=== PATIENT | female | born 1990 | race Caucasian/White ===

== ENCOUNTER 2018-07-27 10:31 | Outpatient (CLI) | payer OTHER ==
--- NOTE | 2018-07-27 13:24 | ULT ---
PELVIC SONOGRAM TRANSABDOMINAL IMAGING WITH DUPLEX EVALUATION: HISTORY: Pelvic pain. FINDINGS: The urinary bladder is unremarkable. The uterus is retroverted with a heterogeneous echotexture and measures 8.3 cm. The endometrium is 1.2 cm. No free fluid. The right ovary is surgically absent. The left ovary is 3.6 cm. Small follicles. Good color and sp ectral Doppler flow. IMPRESSION: 1. Status post right oophorectomy. 2. Normal sonographic appearance of the left ovary. 3. Thickened endometrium of 1.2 cm. POS: [facility]
== END 2018-07-27 10:32 | disposition home or self-care (01) ==
LOC: SCSULT 10:31
PROVIDERS: ATTEND Family Medicine
DX: R10.2 Pelvic and perineal pain (principal); R93.89 Abnormal findings on diagnostic imaging of other specified body structures; Z90.721 Acquired absence of ovaries, unilateral
CPT/HCPCS: 76856

== ENCOUNTER 2018-08-02 10:29 | Outpatient (CLI) | payer OTHER ==
--- NOTE | 2018-08-02 12:11 | CT ---
CT PELVIS WITH CONTRAST: Date: 08/02/18 HISTORY: Pelvic pain. COMPARISON: Ultrasound dated 07/27/18. FINDINGS: There is a hemorrhagic corpus luteal cyst left ovary. Small volume free fluid in the pelvis, likely p hysiologic. Numerous phleboliths in the pelvis. There is a small lymph node adjacent to the sigmoid colon. No dilated loops of bowel in the lower pelvis. Skeleton is unremarkable. IMPRESSION: Left ovarian hemorrhagic cyst with small volume free fluid in the pelvis, likely physiologic. POS: [facility]
== END 2018-08-02 10:30 | disposition home or self-care (01) ==
LOC: SCSCT 10:29
PROVIDERS: ATTEND Family Medicine
DX: R10.2 Pelvic and perineal pain (principal); R19.00 Intra-abdominal and pelvic swelling, mass and lump, unspecified site; N83.202 Unspecified ovarian cyst, left side
CPT/HCPCS: 72193

== ENCOUNTER 2018-08-09 10:30 | Emergency (ER) | payer OTHER ==
[2018-08-09] MEDS ORDERED: Acetaminophen 500 MG TAB ONE (11:03)
[2018-08-09 11:16] LABS: #Basophils 0.1 thou/uL (0.0-0.2); #Eosinphils 0.4 thou/uL (0.0-0.7); #Lymphocytes 2.4 thou/uL (1.20-3.40); #Monocytes 0.5 thou/uL (0.11-0.59); %Basophils 1.4 % (0.0-1.0); %Eosinophils 4.7 % (0.0-10.0); %Lymphocytes 28.8 % (21.0-51.0); %Monocytes 5.5 % (0.0-10.0); %Neutrophils 59.6 % (42.0-75.0); Hemoglobin 14.3 g/dL (12.0-16.0); Mean Corpuscular HGB CONC 32.3 g/dL (32.0-36.0); Mean Corpuscular Hemoglobin 28.8 pg (27.0-31.0); Mean Corpuscular Volume 89.1 fL (78.0-98.0); Mean Platelet Volume 9.9 fL (7.4-10.4); Platelet Count 175 thou/uL (130-400); RBC Distribution Width 12.9 % (11.5-14.5); Red Blood Cell (RBC) Count 4.98 mill/uL (4.20-5.40); White Blood Cell (WBC) Count 8.4 thou/uL (4.8-10.8)
[2018-08-09 11:25] LABS: ALT (SGPT) 17 U/L (8-55); AST (SGOT) 15 U/L (5-34); Albumin 4.1 g/dL (3.5-5.0); Alkaline Phosphatase 38 U/L (40-150); Anion Gap 12 mmol/L (10-20); BUN (Urea Nitrogen) 7 mg/dL (7.0-18.7); Bilirubin, Total 0.4 mg/dL (0.2-1.2); Calc. Creatinine Clearance 0 mL/min (70-130); Calcium 9.5 mg/dL (7.8-10.44); Carbon Dioxide 24 mmol/L (22-29); Chloride 108 mmol/L (98-107); Estimated GFR-MDRD 85; Globulin 2.3 g/dL (2.4-3.5); Glucose 105 mg/dL (70-105); Lipase 17 U/L (8-78); Potassium 3.4 mmol/L (3.5-5.1); Protein, Total 6.4 g/dL (6.0-8.3); Sodium 141 mmol/L (136-145)
[2018-08-09 11:34] LABS: Bilirubin Negative (Negative); Blood, Urine Negative (Negative); Clarity Clear (Clear); Glucose, Urine (Dipstick) Negative (Negative); Leukocyte Negative (Negative); Nitrite Negative (Negative); Protein, Urine (Dipstick) Negative (Neg-Trace); Urobilinogen 0.2 mg/dL (0.2-1.0)
[2018-08-09 11:36] LABS: Pregnancy Test - Urine (BHCG) Negative (Negative); Pregu Control Background? CLEAR/WHITE (CLR/WHITE); Pregu Control Bar Appear? YES (CONTROL BAR)
--- NOTE | 2018-08-09 12:24 | ULT ---
TRANSVAGINAL PELVIS ULTRASOUND: HISTORY: Pelvic pain. COMPARISON: CT from 08/02/2018. TECHNIQUE: Real-time, hilario-scale, color Doppler, and spectral analysis of the pelvis is performed with a transab dominal and transvaginal approach. FINDINGS: The uterus measures 7.5 x 5.3 x 4.3 cm. Endometrial thickness is 6 mm. Prior right oophorectomy. The left ovary measures 3.8 x 2.9 x 2.7 cm with adequate vascular flow. N o significant free fluid. The uterus is retroverted. IMPRESSION: Normal examination. POS: [facility]
== END 2018-08-09 11:44 | disposition home or self-care (01) ==
LOC: SCSER 10:30
DX: N93.9 Abnormal uterine and vaginal bleeding, unspecified (principal); F17.210 Nicotine dependence, cigarettes, uncomplicated
CPT/HCPCS: 36415; 76856; 80053; 81003; 81025; 83690; 85025

== ENCOUNTER 2020-11-29 17:13 | Outpatient (CLI) | payer OTHER ==
[2020-11-29 19:17] LABS: BHCG - Serum Negative (NEGATIVE); Pregs Control Background? CLEAR/WHITE (CLR/WHITE); Pregs Control Bar Appear? YES (CONTROL BAR)
[2020-11-30 12:53] LABS: SARS-CoV-2 PCR by NAA Not Detected (NotDetected)
== END 2020-11-29 17:14 | disposition home or self-care (01) ==
LOC: LABBT 17:13
PROVIDERS: ATTEND Otolaryngology Plastic Surgery within the Head & Neck
DX: Z01.818 Encounter for other preprocedural examination (principal); J35.01 Chronic tonsillitis; Z20.822 Contact with and (suspected) exposure to COVID-19
CPT/HCPCS: 84703; 85014; U0003; U0005

== ENCOUNTER 2020-12-04 06:04 | Day surgery (SDC) | payer OTHER ==
[2020-12-03 11:54] VITALS: BMI 24.0
[2020-12-04] MEDS ORDERED: Fentanyl 100 MCG/2 ML VIAL ONE ×4 (06:23→08:56)
[2020-12-04] MEDS ORDERED: Midazolam HCl 2 mg/2 ml Vial ONE ×2 (06:23→06:45)
[2020-12-04] MEDS ORDERED: Lidocaine 4% Topical Sol 50 ML BOT ONE (06:50)
[2020-12-04] MEDS ORDERED: Ferric Subsulfate (ASTRINGYN) 8 GM VIAL ONE (06:52)
[2020-12-04] MEDS ORDERED: Dexamethasone 20 MG/5 ML VIAL ONE (07:33)
[2020-12-04] MEDS ORDERED: PROPOFOL 200 MG/20 ML VIAL ONE (07:33)
[2020-12-04] MEDS ORDERED: Lidocaine 1% PF 5 ML VIAL ONE (07:33)
[2020-12-04] MEDS ORDERED: Ondansetron PF 4 MG/2 ML Vial ONE (07:33)
[2020-12-04] MEDS ORDERED: Succinylcholine 200 MG/10 ml SYRINGE FS ONE (07:33)
[2020-12-04] MEDS ORDERED: Meperidine HCl/PF 25 MG/ML VIAL ONE (08:16)
[2020-12-04] MEDS ORDERED: Promethazine HCl 25 MG/ML VIAL ONE (08:20)
[2020-12-04] MEDS ORDERED: Hydrocodone-Acetamin 15 ML UDCUP ONE (09:49)
== END 2020-12-04 10:28 | disposition home or self-care (01) ==
LOC: SDC 06:04
PROVIDERS: ATTEND Otolaryngology Plastic Surgery within the Head & Neck
PROC: 0CTPXZZ Resection of Tonsils, External Approach (ICD-10-PCS; principal; 2020-12-04)
PROC: 0CTQXZZ Resection of Adenoids, External Approach (ICD-10-PCS; principal; 2020-12-04)
DX: J35.03 Chronic tonsillitis and adenoiditis (principal); K21.9 Gastro-esophageal reflux disease without esophagitis; F17.210 Nicotine dependence, cigarettes, uncomplicated; E28.2 Polycystic ovarian syndrome; Z88.1 Allergy status to other antibiotic agents; Z88.5 Allergy status to narcotic agent; Z79.899 Other long term (current) drug therapy
CPT/HCPCS: 88304; J1100; J2175; J2250; J2405; J2550; J2704; J3010

== ENCOUNTER 2023-04-26 12:00 | Outpatient (CLI) | payer OTHER ==
[2023-04-26 13:17] LABS: #Eosinphils 0.3 10x3/uL (0.0-0.5); #Monocytes 0.5 10x3/uL (0.0-1.1); #Neutrophils 3.1 10x3/uL (1.5-8.4); %Basophils 0.7 % (0.0-2.0); %Eosinophils 4.1 % (0.0-6.0); %Lymphocytes 37.5 % (18.0-47.0); %Monocytes 7.5 % (0.0-10.0); Hematocrit 41.7 % (34.9-44.5); Hemoglobin 13.2 g/dL (12.0-15.5); Mean Corpuscular HGB CONC 31.7 g/dL (32.0-36.0); Mean Corpuscular Hemoglobin 28.1 pg (27.0-33.0); Mean Corpuscular Volume 88.7 fl (81.6-98.3); Mean Platelet Volume 11.1 fl (7.4-10.4); Platelet Count 198 10x3/uL (150-450); RBC Distribution Width 13.8 % (11.5-14.5); White Blood Cell (WBC) Count 6.1 10x3/uL (3.5-10.5)
[2023-04-26 13:29] LABS: BHCG - Serum Negative (NEGATIVE); Pregs Control Background? CLEAR/WHITE (CLR/WHITE); Pregs Control Bar Appear? YES (CONTROL BAR)
[2023-04-26 13:36] LABS: Anion Gap 13 mmol/L (10-20); BUN (Urea Nitrogen) 10 mg/dL (7.0-18.7); Calc. Creatinine Clearance 0 mL/min (70-130); Calcium 8.9 mg/dL (7.8-10.44); Carbon Dioxide 24 mmol/L (22-29); Chloride 107 mmol/L (98-107); Estimated GFR 109; Glucose 84 mg/dL (70-105); Sodium 140 mmol/L (136-145)
== END 2023-04-26 12:01 | disposition home or self-care (01) ==
LOC: LABBT 12:00
PROVIDERS: ATTEND Surgery
DX: Z01.812 Encounter for preprocedural laboratory examination (principal); K64.9 Unspecified hemorrhoids
CPT/HCPCS: 80048; 84703; 85025

== ENCOUNTER 2023-04-29 09:20 | Day surgery (SDC) | payer OTHER ==
[2023-04-26 12:51] VITALS: BMI 25.4
[2023-04-29] MEDS ORDERED: Midazolam HCl 2 mg/2 ml Vial ONE (11:59)
[2023-04-29] MEDS ORDERED: fentaNYL PF 100 MCG/2 ML SYRINGE ONE (13:05)
[2023-04-29] MEDS ORDERED: cefOXitin 2 GM VIAL ONE (13:08)
[2023-04-29] MEDS ORDERED: Sodium Chloride 0.9% 100 ML ONE (13:08)
[2023-04-29] MEDS ORDERED: PROPOFOL 200 MG/20 ML VIAL ONE (13:19)
[2023-04-29] MEDS ORDERED: Dexamethasone 20 MG/5 ML VIAL ONE (13:19)
[2023-04-29] MEDS ORDERED: Ketorolac Tromethamine 30 MG/ML VIAL ONE (13:19)
[2023-04-29] MEDS ORDERED: Glycopyrrolate 0.2 MG/ML 5 ML SYRINGE ONE (13:19)
[2023-04-29] MEDS ORDERED: Esmolol 100 MG/10 ML VIAL ONE (13:19)
[2023-04-29] MEDS ORDERED: NEOSTIGMINE 3 MG/3 ML SYR 3 MG/3 ML SYRINGE ONE (13:19)
[2023-04-29] MEDS ORDERED: Rocuronium Bromide 10 MG/ML (10ML VIAL) ONE (13:19)
[2023-04-29] MEDS ORDERED: Lidocaine 1% PF 5 ML VIAL ONE (13:19)
[2023-04-29] MEDS ORDERED: Ondansetron PF 4 MG/2 ML Vial ONE (13:19)
[2023-04-29] MEDS ORDERED: SUGAMMADEX SODIUM 200 MG/2 ML VIAL ONE (14:05)
[2023-04-29] MEDS ORDERED: Meperidine HCl/PF 25 MG/ML VIAL ONE (14:15)
[2023-04-29] MEDS ORDERED: fentaNYL 50 mcg/mL 1 mL Vial ONE ×2 (14:22→14:31)
[2023-04-29] MEDS ORDERED: HYDROcodone/Acetaminophen 5/325 mg Tablet ONE (15:22)
[2023-04-29] MEDS ORDERED: Morphine 2 MG/ML VIAL ONE (16:58)
[2023-04-29] MEDS ORDERED: Ibuprofen 800 MG TAB PO SCH (17:30)
== END 2023-04-29 17:50 | disposition home or self-care (01) ==
LOC: SDC 09:20
PROVIDERS: ATTEND Surgery
PROC: 06BY3ZC Excision of Hemorrhoidal Plexus, Percutaneous Approach (ICD-10-PCS; principal; 2023-04-29)
DX: K64.8 Other hemorrhoids (principal); Z87.891 Personal history of nicotine dependence; Z88.5 Allergy status to narcotic agent; Z88.8 Allergy status to other drugs, medicaments and biological substances; Z90.89 Acquired absence of other organs
CPT/HCPCS: 88304; J0694; J1100; J1885; J2175; J2250; J2272; J2405; J2704; J3010; J3490